=== PATIENT | male | born 1940 | race African-American/Black ===

== ENCOUNTER 2016-11-05 05:20 | Day surgery (SDC) | payer MEDICARE, OTHER ==
[~2016-11-05] VITALS: Ht 181.6 cm; Wt 93.0 kg
[~2016-11-05 05:20] MED LIST: ASPI-1159 PO; ATOR20TA65 PO; CILO100T PO; ERGO400T7 PO; LOSA25TA12 PO
[2016-11-05 06:00] LABS: CLARITY URINE CLEAR (CLEAR); COLOR URINE YELLOW (YELLOW); GLUCOSE URINE NEGATIVE (NEGATIVE); KETONES URINE NEGATIVE (NEGATIVE); LEUKOCYTE ESTERASE URINE TRACE (NEGATIVE); NITRITE URINE NEGATIVE (NEGATIVE); OCCULT BLOOD URINE NEGATIVE (NEGATIVE); PH URINE 6.5 (4.5-8.0); PROTEIN URINE NEGATIVE (NEGATIVE); SPECIFIC GRAVITY URINE 1.021 (1.005-1.030)
[2016-11-05] MEDS ORDERED: LACTATED RINGERS 1,000 ML IV SCH (06:15)
[2016-11-05] MEDS ORDERED: SKIN ADHESIVE 0.7 GM EA TOP ONE (06:38)
[2016-11-05] MEDS ORDERED: BUPIVACAINE HCL/PF 0.5% (5MG/ML) 10ML ONE ×2 (06:39→07:22)
[2016-11-05] MEDS ORDERED: FENTANYL CITRATE/PF 50MCG/ML 2ML VIAL ONE ×2 (06:49→07:21)
[2016-11-05] MEDS ORDERED: MIDAZOLAM HCL 2 MG/2 ML VIAL ONE (06:49)
[2016-11-05] MEDS ORDERED: SODIUM CHLORIDE 0.9% 10ML VIAL ONE (07:34)
[2016-11-05] MEDS ORDERED: ROCURONIUM BROMIDE 10MG/ML VIAL 5ML IV ONE (07:34)
[2016-11-05] MEDS ORDERED: PROPOFOL 200MG/20ML VIAL IV ONE (07:34)
[2016-11-05] MEDS ORDERED: ESMOLOL HCL 10MG/ML 10ML VIAL IV ONE (07:34)
[2016-11-05] MEDS ORDERED: CEFAZOLIN SODIUM 1000MG/VIAL ONE (07:34)
[2016-11-05] MEDS ORDERED: BUPIVACAINE HCL 0.5% 175 ML in ON-Q PM013 DRUG DELIV DEVICE 1 EA IR NR (07:45)
[2016-11-05] MEDS ORDERED: NEOSTIGMINE METHYLSULFATE 1MG/ML 10 ML VIAL ONE (08:14)
[2016-11-05] MEDS ORDERED: GLYCOPYRROLATE 0.2 MG/ML 2ML VIAL ONE (08:14)
[2016-11-05] MEDS ORDERED: ONDANSETRON HCL 4MG/2ML VIAL IV PRN (08:30)
[2016-11-05] MEDS ORDERED: HYDROMORPHONE HCL/PF 2MG/ML CPJ IV PRN (08:30)
[2016-11-05] MEDS ORDERED: FENTANYL CITRATE/PF 50MCG/ML 2ML VIAL IV PRN (08:30)
[2016-11-05] MEDS ORDERED: HYDRALAZINE 20MG/ML VIAL IV PRN (08:30)
== END 2016-11-05 10:15 | disposition home or self-care (01) ==
LOC: OR 05:20
PROVIDERS: ATTEND Surgery
DX: K40.90 Unilateral inguinal hernia, without obstruction or gangrene, not specified as recurrent (principal)
CPT/HCPCS: 49505; 71010; 81001; A4216; C1781; G0168; J0690; J2250; J2710; J3010; J3490; J7120; J2704

== ENCOUNTER 2017-02-17 06:32 | Inpatient (IN) | payer MEDICARE, OTHER ==
[2017-02-17] VITALS (35 sets, daily range): BP systolic 120–173; BP diastolic 74–106
[~2017-02-17] VITALS: Ht 180.3 cm; Wt 89.8 kg
[2017-02-17] MEDS ORDERED: ASPIRIN/SOD BICARB/CITRIC ACID 324MG TAB EFF ONE (07:51)
[2017-02-17] MEDS ORDERED: LIDOCAINE HCL 1% 20ML VIAL (Pyxis) INJ ONE ×2 (08:00→09:39)
[2017-02-17] MEDS ORDERED: IODIXANOL 320MG/ML 200ML BOTTLE ONE (08:04)
[2017-02-17] MEDS ORDERED: MIDAZOLAM HCL 2 MG/2 ML VIAL ONE ×2 (08:05→08:34)
[2017-02-17] MEDS ORDERED: FENTANYL CITRATE/PF 50MCG/ML 2ML VIAL ONE (08:06)
[2017-02-17] MEDS ORDERED: HYDRALAZINE 20MG/ML VIAL ONE (08:25)
[2017-02-17] MEDS ORDERED: IOVERSOL 240MG/ML 100ML BOTTLE IV ONE (08:52)
[2017-02-17] MEDS ORDERED: CLOPIDOGREL 75MG TABLET ONE (09:54)
[2017-02-17] MEDS ORDERED: CEFAZOLIN 1000MG PREMIX 50 ML IV ONE (09:55)
[2017-02-17] MEDS ORDERED: MORPHINE SULFATE 10 MG/ML CPJ IV PRN (10:00)
[2017-02-17] MEDS ORDERED: ATROPINE SULFATE 1MG/10ML SYR IV PRN (10:00)
[2017-02-17] MEDS ORDERED: ONDANSETRON HCL 4MG/2ML VIAL IV PRN (10:00)
[2017-02-17] MEDS ORDERED: ACETAMINOPHEN 325MG TABLET PO PRN (10:00)
[2017-02-17] MEDS ORDERED: CLOPIDOGREL 75MG TABLET PO ONE (10:00)
[2017-02-17] MEDS ORDERED: CLOPIDOGREL 75MG TABLET PO SCH (11:30)
[2017-02-17] MEDS: SODIUM CHLORIDE 0.45% 1,000 ML IV SCH ×2 (11:53→21:32)
[2017-02-17] MEDS ORDERED: HEPARIN SODIUM 1,000 UNIT/1ML VIAL IV ONE (11:59)
[2017-02-17] MEDS: LOSARTAN POTASSIUM 50 MG TABLET PO SCH ×2 (12:01→21:32)
[2017-02-17] MEDS ORDERED: LORAZEPAM 2MG/ML CPJ IV NR (17:30)
[2017-02-17] MEDS ORDERED: ATORVASTATIN CALCIUM 20MG TABLET PO SCH (21:00)
[2017-02-18] VITALS: BP 149/79
[2017-02-18 02:00] VITALS: BP 159/88
[2017-02-18 04:00] VITALS: BP 151/84
[2017-02-18 05:50] LABS: BASOPHILS % 0.4 % (0.0-2.0); HEMOGLOBIN. 15.4 g/dL (14.0-18.0); LYMPHOCYTES % 25.2 % (20.0-50.0); MEAN CORPUSCULAR HEMOGLOBIN 28.4 pg (28.0-32.0); MEAN CORPUSCULAR VOLUME 84.9 fL (80.0-94.0); MEAN PLATELET VOLUME 8.2 fl (7.4-10.4); MONOCYTES % 8.8 % (2.0-8.0); NEUTROPHILS % 64.6 % (40.0-76.0); PLATELET 166 x1000/uL (130-400); RED BLOOD CELL COUNT 5.42 mill/uL (4.7-6.1); RED CELL DISTRIBUTION WIDTH 15.1 % (11.6-14.6)
[2017-02-18 06:00] VITALS: BP 148/98
[2017-02-18 06:34] LABS: CARBON DIOXIDE 24 mEq/L (21-32); CHLORIDE 106 mEq/L (98-107)
[2017-02-18 08:00] VITALS: BP 154/92
[2017-02-18] MEDS: LOSARTAN POTASSIUM 50 MG TABLET PO SCH (08:53)
[2017-02-18] MEDS ORDERED: ASPIRIN 325MG TABLET PO SCH (09:00)
[2017-02-18] MEDS ORDERED: CLOPIDOGREL 75MG TABLET PO SCH (09:00)
[2017-02-18 09:30] VITALS: BP 154/92
== END 2017-02-18 12:15 | disposition home or self-care (01) | DRG 254 ==
LOC: CCL 06:32 → 3WST 06:33
PROVIDERS: ADMIT Specialist; ATTEND Specialist
PROC: 047C3DZ Dilation of Right Common Iliac Artery with Intraluminal Device, Percutaneous Approach (ICD-10-PCS; principal; 2017-02-17)
PROC: 047D3DZ Dilation of Left Common Iliac Artery with Intraluminal Device, Percutaneous Approach (ICD-10-PCS; 2017-02-17)
PROC: B41D1ZZ Fluoroscopy of Aorta and Bilateral Lower Extremity Arteries using Low Osmolar Contrast (ICD-10-PCS; 2017-02-17)
DX: I73.9 Peripheral vascular disease, unspecified (principal); I11.9 Hypertensive heart disease without heart failure; E78.00 Pure hypercholesterolemia, unspecified
CPT/HCPCS: 36415; 37221; 37223; 75630; 80048; 85025; 85347; 93005; C1725; C1726; C1760; C1769; C1874; C1893; J0360; J0690; J1644; J2060; J2250; J3010; J3490; J7120; Q9967

== ENCOUNTER 2017-09-02 16:14 | Emergency (ER) | payer MEDICARE, OTHER ==
[~2017-09-02] VITALS: Ht 180.3 cm; Wt 97.0 kg
[2017-09-02 17:48] LABS: EOSINOPHILS % 2.3 % (0.0-5.0); HEMATOCRIT. 43.6 % (42.0-52.0); HEMOGLOBIN. 14.5 g/dL (14.0-18.0); LYMPHOCYTES % 34.4 % (20.0-50.0); MEAN CORPUSCULAR HEMOGLOBIN 28.2 pg (28.0-32.0); MEAN CORPUSCULAR VOLUME 84.6 fL (80.0-94.0); MEAN PLATELET VOLUME 7.5 fl (7.4-10.4); MONOCYTES % 9.9 % (2.0-8.0); NEUTROPHILS % 52.4 % (40.0-76.0); PLATELET 201 x1000/uL (130-400); RED BLOOD CELL COUNT 5.15 mill/uL (4.7-6.1); RED CELL DISTRIBUTION WIDTH 14.8 % (11.6-14.6)
[2017-09-02 17:52] LABS: CHLORIDE 106 mEq/L (98-107)
[2017-09-02 17:56] LABS: INR 1.1; PARTIAL THROMBOPLASTIN TIME 26.6 sec (23.4-31.0); PROTHROMBIN TIME 11.1 sec (9.4-11.6)
[2017-09-02 20:05] LABS: CLARITY URINE CLEAR (CLEAR); COLOR URINE YELLOW (YELLOW); KETONES URINE NEGATIVE (NEGATIVE); LEUKOCYTE ESTERASE URINE NEGATIVE (NEGATIVE); NITRITE URINE NEGATIVE (NEGATIVE); OCCULT BLOOD URINE NEGATIVE (NEGATIVE); PROTEIN URINE NEGATIVE (NEGATIVE); SPECIFIC GRAVITY URINE 1.018 (1.005-1.030)
[2017-09-02 20:21] LABS: OPIATES URINE SCREEN NEGATIVE (NEGATIVE); PHENCYCLIDINE URINE SCREEN NEGATIVE (NEGATIVE)
[2017-09-02 20:22] LABS: *AMPHETAMINES SCREEN URINE NEGATIVE (NEGATIVE); *BARBITURATES SCREEN URINE NEGATIVE (NEGATIVE); *BENZODIAZEPINES SCREEN URINE NEGATIVE (NEGATIVE); *COCAINE SCREEN URINE NEGATIVE (NEGATIVE); CANNABINOID URINE SCREEN PRESUMTIVE POSITIVE (NEGATIVE)
[2017-09-02 20:24] LABS: METHADONE URINE SCREEN NEGATIVE (NEGATIVE)
[2017-09-02 20:45] VITALS: BP 161/84
[2017-09-02] MEDS ORDERED: RIVAROXABAN 15 MG TABLET PO STA (21:15)
[2017-09-03] MEDS ORDERED: RIVAROXABAN 15 MG TABLET PO SCH (17:00)
[2017-09-05] MEDS ORDERED: APIX5TAB PO (12:45)
== END 2017-09-02 21:42 | disposition home or self-care (01) ==
LOC: ER 16:43
DX: I82.491 Acute embolism and thrombosis of other specified deep vein of right lower extremity (principal); I10 Essential (primary) hypertension; E78.00 Pure hypercholesterolemia, unspecified; Z98.890 Other specified postprocedural states
CPT/HCPCS: 36415; 71045; 80053; 80305; 81003; 83880; 84484; 85025; 85610; 85730; 93005; 93971; 99285; G0482

== ENCOUNTER → 2017-09-02 | Outpatient (CLI) | payer MEDICARE, OTHER ==
[~2017-09-02] MED LIST changes: -ASPI-1159 PO
== END | disposition home or self-care (01) ==
LOC: US 11:43
PROVIDERS: ATTEND Specialist
DX: I82.491 Acute embolism and thrombosis of other specified deep vein of right lower extremity (principal)
CPT/HCPCS: 93971

== ENCOUNTER 2017-11-10 20:15 | Emergency (ER) | payer MEDICARE, OTHER ==
[~2017-11-10] VITALS: Ht 180.3 cm; Wt 98.0 kg
[2017-11-10 21:57] LABS: BASOPHILS % 0.9 % (0.0-2.0); EOSINOPHILS % 2.3 % (0.0-5.0); HEMATOCRIT. 37.3 % (42.0-52.0); HEMOGLOBIN. 11.9 g/dL (14.0-18.0); LYMPHOCYTES % 38.4 % (20.0-50.0); MEAN CORPUSCULAR HEMOGLOBIN 27.1 pg (28.0-32.0); MEAN CORPUSCULAR VOLUME 84.9 fL (80.0-94.0); MEAN PLATELET VOLUME 7.3 fl (7.4-10.4); MONOCYTES % 13.5 % (2.0-8.0); NEUTROPHILS % 44.9 % (40.0-76.0); PLATELET 248 x1000/uL (130-400); RED CELL DISTRIBUTION WIDTH 19.3 % (11.6-14.6)
[2017-11-10 22:00] LABS: CHLORIDE 107 mEq/L (98-107)
[2017-11-10 22:01] LABS: INR 1.1; PROTHROMBIN TIME 11.4 sec (9.4-11.6)
[2017-11-11] MEDS ORDERED: VANCOMYCIN 1 G PREMIX 200 ML IV SCH (03:00)
[2017-11-11] MEDS ORDERED: PIPERACILLIN/TAZOBACTAM 3.375GM/50ML PREMIX IV ONE (03:00)
[2017-11-11] MEDS ORDERED: PIPERACILLIN/TAZ 3.375G PREMIX 50 ML IV NR (03:00)
[2017-11-11 03:14] VITALS: BP 128/74
== END 2017-11-11 03:15 | disposition home or self-care (01) ==
LOC: ER 20:15
DX: I82.509 Chronic embolism and thrombosis of unspecified deep veins of unspecified lower extremity (principal); L97.919 Non-pressure chronic ulcer of unspecified part of right lower leg with unspecified severity; I73.9 Peripheral vascular disease, unspecified; M79.661 Pain in right lower leg; K21.9 Gastro-esophageal reflux disease without esophagitis; F17.200 Nicotine dependence, unspecified, uncomplicated
CPT/HCPCS: 36415; 71045; 80053; 83880; 84484; 85025; 85610; 93005; 93970; 99285

== ENCOUNTER → 2018-08-03 | Day surgery (SDC) | payer MEDICARE, OTHER ==
[~2018-08-03] VITALS: Ht 180.3 cm; Wt 93.0 kg
[~2018-08-03] MED LIST changes: +APIX5TAB PO; +ASPIRIN/SOD BICARB/CITRIC ACID 324MG TAB EFF ONE; +FENTANYL CITRATE/PF 50MCG/ML 2ML VIAL ONE; +IODIXANOL 320MG/ML 100 ML BOTTLE IV ONE; +LIDOCAINE HCL 1% 20ML VIAL (Pyxis) INJ ONE; -LOSA25TA12 PO; +LOSA25TA26 PO; +MIDAZOLAM HCL 2 MG/2 ML VIAL ONE; +NEBI2.5T2 PO
== END | disposition home or self-care (01) ==
LOC: CCL 06:30
PROVIDERS: ATTEND Specialist
DX: I25.118 Atherosclerotic heart disease of native coronary artery with other forms of angina pectoris (principal); I73.9 Peripheral vascular disease, unspecified; I10 Essential (primary) hypertension; E78.00 Pure hypercholesterolemia, unspecified; E78.5 Hyperlipidemia, unspecified; Z53.8 Procedure and treatment not carried out for other reasons; Z79.82 Long term (current) use of aspirin; Z79.01 Long term (current) use of anticoagulants; Z79.899 Other long term (current) drug therapy; Z95.5 Presence of coronary angioplasty implant and graft
CPT/HCPCS: J1644; J2250; J3010; Q9967; J3490

== ENCOUNTER 2018-08-05 06:07 | Inpatient (IN) | payer MEDICARE, OTHER ==
[~2018-08-05] VITALS: Ht 180.3 cm; Wt 93.0 kg
[~2018-08-05 06:07] MED LIST changes: -ASPIRIN/SOD BICARB/CITRIC ACID 324MG TAB EFF ONE; -FENTANYL CITRATE/PF 50MCG/ML 2ML VIAL ONE; -IODIXANOL 320MG/ML 100 ML BOTTLE IV ONE; -LIDOCAINE HCL 1% 20ML VIAL (Pyxis) INJ ONE; +LOSA25TA12 PO; -LOSA25TA26 PO; -MIDAZOLAM HCL 2 MG/2 ML VIAL ONE
[2018-08-05] MEDS ORDERED: NICARDIPINE 100MCG/ML 10ML VIAL (CATH LAB) IV ONE (10:01)
[2018-08-05] MEDS ORDERED: NITROGLYCERIN 50MCG/ML 10ML VIAL (CATH LAB) IV ONE (10:01)
[2018-08-05] MEDS ORDERED: HEPARIN SODIUM 1,000 UNIT/1ML VIAL IV ONE (10:03)
[2018-08-05] MEDS ORDERED: FENTANYL CITRATE/PF 50MCG/ML 2ML VIAL ONE (10:38)
[2018-08-05] MEDS ORDERED: MIDAZOLAM HCL 2 MG/2 ML VIAL ONE ×2 (10:38→11:25)
[2018-08-05] MEDS ORDERED: IODIXANOL 320MG/ML 100 ML BOTTLE IV ONE ×2 (10:39→11:55)
[2018-08-05] MEDS ORDERED: LIDOCAINE HCL 1% 20ML VIAL (Pyxis) INJ ONE (10:39)
[2018-08-05] MEDS ORDERED: ASPIRIN/SOD BICARB/CITRIC ACID 324MG TAB EFF ONE (10:51)
[2018-08-05] MEDS ORDERED: IOHEXOL-300 100 ML BOTTLE ONE (11:20)
[2018-08-05] MEDS ORDERED: CLOPIDOGREL 75MG TABLET ONE (11:53)
[2018-08-05] MEDS ORDERED: ATROPINE SULFATE 0.1MG/ML 10ML DISP.SYRIN ONE (12:04)
[2018-08-05] MEDS ORDERED: SODIUM CHLORIDE 0.45% 1,000 ML IV ONE (12:30)
[2018-08-05] MEDS ORDERED: ATROPINE SULFATE 1MG/10ML SYR IV PRN (12:30)
[2018-08-05] MEDS ORDERED: ACETAMINOPHEN 325MG TABLET PO PRN (12:30)
[2018-08-05] MEDS ORDERED: AMLODIPINE 2.5MG TABLET PO SCH (12:30)
[2018-08-05] MEDS ORDERED: LOSARTAN POTASSIUM 25 MG TABLET PO SCH (12:30)
[2018-08-05] MEDS ORDERED: CLOPIDOGREL 75MG TABLET PO NR (12:30)
[2018-08-05] MEDS ORDERED: MORPHINE SULFATE 4 MG/ML CPJ (NOT FOR IM USE) IV PRN (12:30)
[2018-08-05 18:40] VITALS: BP 128/84
[2018-08-05 18:46] VITALS: BP 128/84
[2018-08-05] MEDS ORDERED: INFLUENZA VIRUS VACCINE(AFLURIA) 0.5ML SYR IM ONE (19:30)
[2018-08-05] MEDS ORDERED: PNEUMOCOCCAL 23-VAL P-SAC VAC 0.5 ML IM ONE (19:30)
[2018-08-05 20:00] VITALS: BP 155/78
[2018-08-05] MEDS ORDERED: ATORVASTATIN CALCIUM 40MG TABLET PO SCH (21:00)
[2018-08-05] MEDS: AMLODIPINE 2.5MG TABLET PO SCH (21:05)
[2018-08-05] MEDS: LOSARTAN POTASSIUM 25 MG TABLET PO SCH (21:06)
[2018-08-05 22:00] VITALS: BP 131/68
[2018-08-06] VITALS (8 sets, daily range): BP systolic 121–143; BP diastolic 61–82
[2018-08-06 05:23] LABS: BASOPHILS % 0.7 % (0.0-2.0); EOSINOPHILS % 1.4 % (0.0-5.0); HEMATOCRIT. 38.9 % (42.0-52.0); HEMOGLOBIN. 12.8 g/dL (14.0-18.0); MEAN CORPUSCULAR HEMOGLOBIN 27.1 pg (28.0-32.0); MEAN CORPUSCULAR VOLUME 82.5 fL (80.0-94.0); MEAN PLATELET VOLUME 7.8 fl (7.4-10.4); MONOCYTES % 12.7 % (2.0-8.0); NEUTROPHILS % 57.2 % (40.0-76.0); PLATELET 205 x1000/uL (130-400); RED BLOOD CELL COUNT 4.72 mill/uL (4.7-6.1); RED CELL DISTRIBUTION WIDTH 15.5 % (11.6-14.6)
[2018-08-06 06:32] LABS: CHLORIDE 106 mEq/L (98-107)
[2018-08-06] MEDS: AMLODIPINE 2.5MG TABLET PO SCH (08:48)
[2018-08-06] MEDS: LOSARTAN POTASSIUM 25 MG TABLET PO SCH (08:48)
[2018-08-06] MEDS ORDERED: ASPIRIN 325MG TABLET PO SCH (09:00)
[2018-08-06] MEDS ORDERED: NEBIVOLOL HCL 5 MG TABLET PO SCH (09:00)
[2018-08-06] MEDS ORDERED: CLOPIDOGREL 75MG TABLET PO SCH (09:00)
== END 2018-08-06 12:45 | disposition home or self-care (01) | DRG 247 ==
LOC: CCL 06:07 → 3WST 19:03
PROVIDERS: ADMIT Specialist; ATTEND Specialist
PROC: 4A023N7 Measurement of Cardiac Sampling and Pressure, Left Heart, Percutaneous Approach (ICD-10-PCS; principal; 2018-08-05)
PROC: 027136Z Dilation of Coronary Artery, Two Arteries with Three Drug-eluting Intraluminal Devices, Percutaneous Approach (ICD-10-PCS; 2018-08-05)
PROC: B2111ZZ Fluoroscopy of Multiple Coronary Arteries using Low Osmolar Contrast (ICD-10-PCS; 2018-08-05)
DX: I25.10 Atherosclerotic heart disease of native coronary artery without angina pectoris (principal); I10 Essential (primary) hypertension; E78.5 Hyperlipidemia, unspecified; I73.9 Peripheral vascular disease, unspecified; Z86.718 Personal history of other venous thrombosis and embolism
CPT/HCPCS: 36415; 80048; 85347; 90686; 90732; 92928; 92929; 93005; 93458; C1769; C1874; C1887; C1893; J0461; J1644; J2250; J3010; J3490; Q9967

== ENCOUNTER 2019-04-11 11:05 | Inpatient (IN) | payer MEDICAID, MEDICARE, OTHER ==
[~2019-04-11] VITALS: Ht 180.3 cm; Wt 89.8 kg
[~2019-04-11 11:05] MED LIST changes: -LOSA25TA12 PO; +LOSA25TA26 PO
[2019-04-11] MEDS ORDERED: SODIUM CHLORIDE 0.9% 250 ML IV ONE (11:27)
[2019-04-11] MEDS ORDERED: ONDANSETRON HCL 4MG/2ML INJ IV STA (11:27)
[2019-04-11] MEDS ORDERED: MORPHINE SULFATE 4 MG/ML CPJ (NOT FOR IM USE) IV STA (11:27)
[2019-04-11 12:01] LABS: HEMATOCRIT. 46.2 % (42.0-52.0); HEMOGLOBIN. 14.9 g/dL (14.0-18.0); MEAN CORPUSCULAR HEMOGLOBIN 23.3 pg (28.0-32.0); MEAN CORPUSCULAR VOLUME 72.5 fL (80.0-94.0); MEAN PLATELET VOLUME 8.6 fl (7.4-10.4); PLATELET 243 x1000/uL (130-400); RED BLOOD CELL COUNT 6.38 mill/uL (4.7-6.1); RED CELL DISTRIBUTION WIDTH 20.6 % (11.6-14.6)
[2019-04-11 12:49] LABS: PLATELET ESTIMATE NORMAL
[2019-04-11 12:50] LABS: CLARITY URINE CLEAR (CLEAR); COLOR URINE DARK YELLOW (YELLOW); KETONES URINE TRACE (NEGATIVE); LEUKOCYTE ESTERASE URINE NEGATIVE (NEGATIVE); NITRITE URINE NEGATIVE (NEGATIVE); OCCULT BLOOD URINE 1+ (NEGATIVE); PH URINE 5.5 (4.5-8.0); PROTEIN URINE 2+ (NEGATIVE)
[2019-04-11] MEDS ORDERED: CEFTRIAXONE 1 G PREMIX 50 ML IV ONE (13:15)
[2019-04-11 14:53] LABS: CHLORIDE 106 mEq/L (98-107)
[2019-04-11] MEDS ORDERED: VANCOMYCIN 1 G PREMIX 200 ML IV ONE (15:00)
[2019-04-11] MEDS ORDERED: MAGNESIUM/ALUMINUM HYDROXIDE/SIMETHICONE 30ML UDC PO PRN (15:30)
[2019-04-11] MEDS ORDERED: DIPHENHYDRAMINE 50MG/ML VIAL IV PRN (15:30)
[2019-04-11] MEDS ORDERED: ONDANSETRON HCL 4MG/2ML INJ IV PRN (15:30)
[2019-04-11] MEDS ORDERED: GUAIFENESIN 200MG/10ML SUGAR FREE UDC PO PRN (15:30)
[2019-04-11] MEDS ORDERED: SODIUM CHLORIDE 0.9% 1,000 ML IV ONE (16:44)
[2019-04-11] MEDS: HYDROMORPHONE HCL/PF 2MG/ML CPJ IV PRN ×2 (16:54→17:59)
[2019-04-11 17:00] VITALS: BP 163/79
[2019-04-11 20:00] VITALS: BP 159/89
[2019-04-11] MEDS: SODIUM CHLORIDE 0.9% INJ 3ML FLUSH IVF SCH (20:11)
[2019-04-11] MEDS: FAMOTIDINE 20MG TABLET PO SCH (20:11)
[2019-04-11] MEDS ORDERED: INFLUENZA VIRUS VACCINE(AFLURIA) 0.5ML SYR IM ONE (20:30)
[2019-04-12] VITALS: BP 119/67
[2019-04-12] MEDS: HYDROMORPHONE HCL/PF 2MG/ML CPJ IV PRN ×3 (00:33→20:10)
[2019-04-12] MEDS: SODIUM CHLORIDE 0.9% INJ 3ML FLUSH IVF SCH ×3 (07:00→20:26)
[2019-04-12 08:00] VITALS: BP 145/88
[2019-04-12 10:19] LABS: INR 1.2
[2019-04-12] MEDS: FAMOTIDINE 20MG TABLET PO SCH ×2 (10:20→20:26)
[2019-04-12] MEDS: SODIUM CHLORIDE 0.9% 1,000 ML IV SCH ×2 (10:20→18:15)
[2019-04-12 11:21] LABS: HEMATOCRIT. 38.6 % (42.0-52.0); HEMOGLOBIN. 11.8 g/dL (14.0-18.0); MEAN CORPUSCULAR HEMOGLOBIN 22.5 pg (28.0-32.0); MEAN CORPUSCULAR VOLUME 73.4 fL (80.0-94.0); MEAN PLATELET VOLUME 8.8 fl (7.4-10.4); PLATELET 161 x1000/uL (130-400); RED BLOOD CELL COUNT 5.26 mill/uL (4.7-6.1); RED CELL DISTRIBUTION WIDTH 19.3 % (11.6-14.6)
[2019-04-12 12:00] VITALS: BP 162/85
[2019-04-12 12:32] LABS: INR 1.1; PROTHROMBIN TIME 11.8 sec (9.6-11.0)
[2019-04-12 16:00] VITALS: BP 151/78
[2019-04-12 18:37] LABS: PLATELET ESTIMATE NORMAL
[2019-04-12] MEDS ORDERED: GADOBENATE DIMEGLUMINE 529 MG/ML 10ML IV ONE (19:11)
[2019-04-12 20:00] VITALS: BP 167/93
[2019-04-13 00:13] VITALS: BP 154/86
[2019-04-13] MEDS ORDERED: VANCOMYCIN 750 MG PREMIX 150 ML IV SCH (01:00)
[2019-04-13 04:00] VITALS: BP 157/87
[2019-04-13] MEDS: SODIUM CHLORIDE 0.9% 1,000 ML IV SCH ×2 (04:15→14:20)
[2019-04-13] MEDS: PIPERACILLIN/TAZOBACTAM 3.375 G in DEXT 5% WATER 100 ML IV SCH ×4 (06:30→13:12)
[2019-04-13] MEDS: SODIUM CHLORIDE 0.9% INJ 3ML FLUSH IVF SCH ×3 (06:30→21:44)
[2019-04-13 07:25] LABS: BASOPHILS % 0.4 % (0.0-2.0); HEMATOCRIT. 36.2 % (42.0-52.0); HEMOGLOBIN. 11.4 g/dL (14.0-18.0); LYMPHOCYTES % 8.3 % (20.0-50.0); MEAN CORPUSCULAR HEMOGLOBIN 22.7 pg (28.0-32.0); MEAN CORPUSCULAR VOLUME 72.4 fL (80.0-94.0); MEAN PLATELET VOLUME 8.6 fl (7.4-10.4); MONOCYTES % 12.5 % (2.0-8.0); NEUTROPHILS % 78.8 % (40.0-76.0); PLATELET 176 x1000/uL (130-400); RED BLOOD CELL COUNT 4.99 mill/uL (4.7-6.1); RED CELL DISTRIBUTION WIDTH 19.2 % (11.6-14.6)
[2019-04-13 07:44] LABS: CHLORIDE 106 mEq/L (98-107)
[2019-04-13 07:51] LABS: PHOSPHORUS 3.3 mg/dL (2.5-4.9)
[2019-04-13 08:00] VITALS: BP 148/84
[2019-04-13] MEDS: OXYCODONE HCL/ACETAMINOPHEN 5/325MG TABLET PO PRN ×2 (08:59→18:18)
[2019-04-13] MEDS ORDERED: FAMOTIDINE 40MG TABLET PO SCH (11:22)
[2019-04-13 12:00] VITALS: BP 149/91
[2019-04-13 16:00] VITALS: BP 134/75
[2019-04-13] MEDS ORDERED: IPRATROPIUM/ALBUTEROL 0.5-3(2.5)MG/3ML NEB HHN PRN (16:00)
[2019-04-13] MEDS ORDERED: VANCOMYCIN 1250MG in DEXTROSE 5% WATER 250ML IV SCH (18:00)
[2019-04-13] MEDS: CEFTRIAXONE 2 G in DEXTROSE 5% WATER 50 ML IV SCH (18:17)
[2019-04-13] MEDS: VANCOMYCIN 1250MG in DEXTROSE 5% WATER 250ML IV SCH (18:55)
[2019-04-13 20:00] VITALS: BP_SYST 144
[2019-04-13] MEDS ORDERED: FAMOTIDINE 20MG TABLET PO SCH (21:00)
[2019-04-13] MEDS: FAMOTIDINE 40MG TABLET PO SCH (22:35)
[2019-04-14] VITALS: BP 155/88
[2019-04-14] MEDS: SODIUM CHLORIDE 0.9% 1,000 ML IV SCH ×3 (00:15→20:15)
[2019-04-14] MEDS: OXYCODONE HCL/ACETAMINOPHEN 5/325MG TABLET PO PRN ×2 (00:39→13:35)
[2019-04-14 04:00] VITALS: BP 156/90
[2019-04-14] MEDS: SODIUM CHLORIDE 0.9% INJ 3ML FLUSH IVF SCH ×2 (06:00→22:00)
[2019-04-14] MEDS: ACETAMINOPHEN 325MG TABLET PO PRN (06:35)
[2019-04-14 07:20] LABS: CHLORIDE 105 mEq/L (98-107)
[2019-04-14 08:00] VITALS: BP 136/81
[2019-04-14] MEDS: FAMOTIDINE 40MG TABLET PO SCH ×2 (09:55→21:46)
[2019-04-14] MEDS: CEFTRIAXONE 2 G in DEXTROSE 5% WATER 50 ML IV SCH (10:14)
[2019-04-14] MEDS: VANCOMYCIN 1250MG in DEXTROSE 5% WATER 250ML IV SCH ×2 (11:02→18:48)
[2019-04-14] MEDS ORDERED: LIDOCAINE HCL 1% 20ML VIAL (Pyxis) INJ ONE (11:31)
[2019-04-14 12:00] VITALS: BP 160/90
[2019-04-14] MEDS ORDERED: THROMBIN (BOVINE) 5000 UNITS/VIAL TOP ONE ×2 (12:48→13:36)
[2019-04-14] MEDS ORDERED: LIDOCAINE HCL/EPINEPHRINE 1%-EPI 1:100,000 20 ML VIAL ONE ×2 (12:49→13:37)
[2019-04-14] MEDS ORDERED: BACITRACIN 50,000 UNITS/VIAL ONE ×2 (12:49→13:38)
[2019-04-14] MEDS ORDERED: NORMAL SALINE 0.9% 10 ML SYR ONE (12:49)
[2019-04-14] MEDS ORDERED: BACITRACIN 15GM TUBE TOP ONE (13:36)
[2019-04-14] MEDS ORDERED: ROCURONIUM BROMIDE 10MG/ML VIAL 5ML IV ONE (14:55)
[2019-04-14] MEDS ORDERED: GLYCOPYRROLATE 0.2 MG/ML 2ML VIAL ONE (14:55)
[2019-04-14] MEDS ORDERED: FENTANYL CITRATE/PF 50MCG/ML 2ML VIAL ONE (14:55)
[2019-04-14] MEDS ORDERED: MIDAZOLAM HCL 2 MG/2 ML VIAL ONE (14:55)
[2019-04-14] MEDS ORDERED: NEOSTIGMINE METHYLSULFATE 1MG/ML 10 ML VIAL ONE (14:55)
[2019-04-14] MEDS ORDERED: PROPOFOL 200MG/20ML VIAL IV ONE (14:55)
[2019-04-14] MEDS ORDERED: ONDANSETRON HCL 4MG/2ML INJ ONE (15:09)
[2019-04-14] MEDS ORDERED: DEXAMETHASONE 4MG/ML 1ML VIAL ONE (15:09)
[2019-04-14 16:00] VITALS: BP 180/92
[2019-04-14] MEDS ORDERED: ONDANSETRON INJ IV PRN (17:15)
[2019-04-14] MEDS ORDERED: NALOXONE INJ IV PRN (17:15)
[2019-04-14] MEDS: HYDROMORPHONE PCA 10MG/50ML IV PRN (18:36)
[2019-04-14] MEDS: CLONIDINE 0.1MG TABLET PO PRN (21:46)
[2019-04-15] VITALS (52 sets, daily range): BP systolic 72–175; BP diastolic 49–173
[2019-04-15] MEDS: DEXT 5%/0.45% NACL 1000ML 1,000 ML IV SCH ×2 (01:23→10:10)
[2019-04-15] MEDS: VANCOMYCIN 1250MG in DEXTROSE 5% WATER 250ML IV SCH ×3 (01:24→17:59)
[2019-04-15] MEDS ORDERED: THROMBIN (BOVINE) 5000 UNITS/VIAL TOP ONE ×2 (05:28→05:30)
[2019-04-15] MEDS ORDERED: BACITRACIN 15GM TUBE TOP ONE (05:28)
[2019-04-15] MEDS ORDERED: LIDOCAINE HCL/EPINEPHRINE 1%-EPI 1:100,000 20 ML VIAL ONE (05:29)
[2019-04-15] MEDS ORDERED: BACITRACIN 50,000 UNITS/VIAL ONE (05:29)
[2019-04-15] MEDS: SODIUM CHLORIDE 0.9% INJ 3ML FLUSH IVF SCH ×3 (05:30→22:14)
[2019-04-15] MEDS: SODIUM CHLORIDE 0.9% 1,000 ML IV SCH (05:36)
[2019-04-15] MEDS ORDERED: FENTANYL CITRATE/PF 50MCG/ML 5ML VIAL ONE (07:23)
[2019-04-15] MEDS ORDERED: ROCURONIUM BROMIDE 10MG/ML VIAL 5ML IV ONE (07:45)
[2019-04-15] MEDS ORDERED: NICARDIPINE 100 MG in SODIUM CHLORIDE 0.9% 60 ML IV PRN (09:00)
[2019-04-15] MEDS: FAMOTIDINE 40MG TABLET PO SCH ×2 (09:00→22:14)
[2019-04-15] MEDS ORDERED: MORPHINE SULFATE 4 MG/ML CPJ (NOT FOR IM USE) IV PRN (09:00)
[2019-04-15] MEDS: CEFTRIAXONE 2 G in DEXTROSE 5% WATER 50 ML IV SCH (10:10)
[2019-04-15] MEDS ORDERED: CLONIDINE HCL 0.1MG/24HR PATCH TD NR (13:30)
[2019-04-16] VITALS (95 sets, daily range): BP systolic 103–161; BP diastolic 52–96
[2019-04-16] MEDS: DEXT 5%/0.45% NACL 1000ML 1,000 ML IV SCH ×4 (00:13→17:10)
[2019-04-16] MEDS: VANCOMYCIN 1250MG in DEXTROSE 5% WATER 250ML IV SCH ×3 (02:33→18:12)
[2019-04-16 05:22] LABS: HEMATOCRIT. 33.9 % (42.0-52.0); HEMOGLOBIN. 10.8 g/dL (14.0-18.0); MEAN CORPUSCULAR HEMOGLOBIN 22.8 pg (28.0-32.0); MEAN CORPUSCULAR VOLUME 71.4 fL (80.0-94.0); MEAN PLATELET VOLUME 7.9 fl (7.4-10.4); PLATELET 212 x1000/uL (130-400); RED BLOOD CELL COUNT 4.75 mill/uL (4.7-6.1); RED CELL DISTRIBUTION WIDTH 19.9 % (11.6-14.6)
[2019-04-16 05:32] LABS: CHLORIDE 101 mEq/L (98-107)
[2019-04-16] MEDS: SODIUM CHLORIDE 0.9% INJ 3ML FLUSH IVF SCH ×3 (06:46→22:00)
[2019-04-16] MEDS: CEFTRIAXONE 2 G in DEXTROSE 5% WATER 50 ML IV SCH (08:43)
[2019-04-16] MEDS: FAMOTIDINE 40MG TABLET PO SCH ×2 (08:44→20:56)
[2019-04-16] MEDS: ASPIRIN 81MG TABLET PO SCH (09:35)
[2019-04-16] MEDS: METOPROLOL TARTRATE 50MG TABLET PO SCH ×2 (09:35→20:56)
[2019-04-16 10:49] LABS: PLATELET ESTIMATE NORMAL
[2019-04-16] MEDS: CLONIDINE 0.1MG TABLET PO PRN (11:51)
[2019-04-16] MEDS: HYDROMORPHONE PCA 10MG/50ML IV PRN (15:16)
[2019-04-16] MEDS: ACETAMINOPHEN 325MG TABLET PO PRN (17:20)
[2019-04-17] VITALS (58 sets, daily range): BP systolic 122–168; BP diastolic 49–103
[2019-04-17] MEDS: VANCOMYCIN 1250MG in DEXTROSE 5% WATER 250ML IV SCH ×3 (02:08→17:11)
[2019-04-17] MEDS: DEXT 5%/0.45% NACL 1000ML 1,000 ML IV SCH (02:08)
[2019-04-17] MEDS: ACETAMINOPHEN 325MG TABLET PO PRN (02:20)
[2019-04-17] MEDS: SODIUM CHLORIDE 0.9% INJ 3ML FLUSH IVF SCH ×2 (06:26→13:53)
[2019-04-17] MEDS: FAMOTIDINE 40MG TABLET PO SCH ×2 (08:14→20:07)
[2019-04-17] MEDS: CEFTRIAXONE 2 G in DEXTROSE 5% WATER 50 ML IV SCH (08:14)
[2019-04-17] MEDS: METOPROLOL TARTRATE 50MG TABLET PO SCH ×2 (08:14→20:07)
[2019-04-17] MEDS: ASPIRIN 81MG TABLET PO SCH (08:14)
[2019-04-17] MEDS: AMLODIPINE 5MG TABLET PO SCH (10:27)
[2019-04-17] MEDS: HYDROCODONE/ACETAMINOPHEN 10/325MG TABLET PO PRN (15:17)
[2019-04-17] MEDS: CARISOPRODOL 350 MG TABLET PO PRN (17:11)
[2019-04-17] MEDS: HYDROMORPHONE HCL/PF 2MG/ML CPJ IV PRN (17:11)
[2019-04-17] MEDS: DOCUSATE SODIUM 250MG CAPSULE PO SCH (17:11)
[2019-04-17] MEDS: CLONIDINE 0.1MG TABLET PO PRN (22:00)
[2019-04-18] VITALS (7 sets, daily range): BP systolic 136–164; BP diastolic 70–89
[2019-04-18] MEDS: SODIUM CHLORIDE 0.9% INJ 3ML FLUSH IVF SCH ×4 (00:42→22:20)
[2019-04-18] MEDS: HYDROMORPHONE HCL/PF 2MG/ML CPJ IV PRN ×2 (00:42→05:45)
[2019-04-18] MEDS: VANCOMYCIN 1250MG in DEXTROSE 5% WATER 250ML IV SCH ×3 (02:10→17:14)
[2019-04-18] MEDS: CEFTRIAXONE 2 G in DEXTROSE 5% WATER 50 ML IV SCH (09:07)
[2019-04-18] MEDS: ASPIRIN 81MG TABLET PO SCH (09:08)
[2019-04-18] MEDS: AMLODIPINE 5MG TABLET PO SCH (09:08)
[2019-04-18] MEDS: DOCUSATE SODIUM 250MG CAPSULE PO SCH ×2 (09:08→17:13)
[2019-04-18] MEDS: METOPROLOL TARTRATE 50MG TABLET PO SCH (10:28)
[2019-04-18] MEDS: FAMOTIDINE 40MG TABLET PO SCH (10:28)
[2019-04-18] MEDS: MORPHINE SULFATE 2 MG/ML CPJ (NOT FOR IM USE) IV PRN ×2 (13:49→20:38)
[2019-04-18] MEDS: FAMOTIDINE 20MG TABLET PO SCH (22:22)
[2019-04-19] MEDS: VANCOMYCIN 1250MG in DEXTROSE 5% WATER 250ML IV SCH ×3 (02:29→19:16)
[2019-04-19 04:00] VITALS: BP 160/84
[2019-04-19] MEDS: SODIUM CHLORIDE 0.9% INJ 3ML FLUSH IVF SCH ×3 (06:04→21:25)
[2019-04-19 07:29] LABS: CHLORIDE 96 mEq/L (98-107)
[2019-04-19 08:55] LABS: BASOPHILS % 0.5 % (0.0-2.0); HEMATOCRIT. 35.6 % (42.0-52.0); HEMOGLOBIN. 11.3 g/dL (14.0-18.0); LYMPHOCYTES % 10.1 % (20.0-50.0); MEAN CORPUSCULAR HEMOGLOBIN 22.8 pg (28.0-32.0); MEAN CORPUSCULAR VOLUME 71.8 fL (80.0-94.0); MEAN PLATELET VOLUME 8.6 fl (7.4-10.4); MONOCYTES % 7.9 % (2.0-8.0); NEUTROPHILS % 81.5 % (40.0-76.0); PLATELET 322 x1000/uL (130-400); RED BLOOD CELL COUNT 4.97 mill/uL (4.7-6.1); RED CELL DISTRIBUTION WIDTH 19.7 % (11.6-14.6)
[2019-04-19] MEDS: ASPIRIN 81MG TABLET PO SCH (09:00)
[2019-04-19] MEDS ORDERED: NEBIVOLOL HCL 5 MG TABLET PO SCH (09:00)
[2019-04-19] MEDS: FAMOTIDINE 20MG TABLET PO SCH ×2 (11:04→21:27)
[2019-04-19] MEDS: DOCUSATE SODIUM 250MG CAPSULE PO SCH ×2 (11:04→19:16)
[2019-04-19] MEDS: AMLODIPINE 5MG TABLET PO SCH (11:04)
[2019-04-19] MEDS: CEFTRIAXONE 2 G in DEXTROSE 5% WATER 50 ML IV SCH (11:05)
[2019-04-19 14:12] LABS: BG BASE EXCESS 5.4 mmol/L (-2.0-2.0); BG CARBOXYHEMOGLOBIN 0.9 % (0.5-1.5); BG DEOXYHEMOGLOBIN 4.6 % (0.0-5.0); BG FRACTION INSPIRED OXYGEN 21; BG HCO3 ACT 28.7 mmol/L (22.0-26.0); BG METHEMOGLOBIN 0.3 % (0.0-1.5); BG OXYGEN SATURATION 95.3 % (92.0-98.5); BG OXYHEMOGLOBIN 94.2 % (94.0-97.0); BG PCO2 37.4 mmHg (35.0-45.0); BG PH 7.503 (7.350-7.450); BG PO2 78.8 mmHg (75.0-100.0); BG SAMPLE SITE RIGHT BRACHIAL; BG TOTAL HEMOGLOBIN 12.5 g/dL (12.0-18.0); BG VENT MODE ROOM AIR
[2019-04-19 20:00] VITALS: BP 154/80
[2019-04-19] MEDS: MORPHINE SULFATE 2 MG/ML CPJ (NOT FOR IM USE) IV PRN (20:23)
[2019-04-19] MEDS: NEBIVOLOL HCL 5 MG TABLET PO SCH (21:25)
[2019-04-19] MEDS: HYDROCODONE/ACETAMINOPHEN 10/325MG TABLET PO PRN (21:38)
[2019-04-20] VITALS: BP 124/98
[2019-04-20] MEDS: VANCOMYCIN 1250MG in DEXTROSE 5% WATER 250ML IV SCH ×3 (02:20→17:32)
[2019-04-20] MEDS: MORPHINE SULFATE 2 MG/ML CPJ (NOT FOR IM USE) IV PRN ×2 (02:31→08:22)
[2019-04-20 04:00] VITALS: BP 151/79
[2019-04-20] MEDS: SODIUM CHLORIDE 0.9% INJ 3ML FLUSH IVF SCH ×3 (05:05→21:00)
[2019-04-20 08:00] VITALS: BP 149/71
[2019-04-20] MEDS: FAMOTIDINE 20MG TABLET PO SCH ×2 (08:43→20:58)
[2019-04-20] MEDS: NEBIVOLOL HCL 5 MG TABLET PO SCH ×2 (08:43→20:58)
[2019-04-20] MEDS: AMLODIPINE 5MG TABLET PO SCH (08:43)
[2019-04-20] MEDS: ASPIRIN 81MG TABLET PO SCH (08:43)
[2019-04-20] MEDS: DOCUSATE SODIUM 250MG CAPSULE PO SCH ×2 (08:43→17:32)
[2019-04-20] MEDS: CEFTRIAXONE 2 G in DEXTROSE 5% WATER 50 ML IV SCH (08:45)
[2019-04-20 12:00] VITALS: BP 132/73
[2019-04-20 16:00] VITALS: BP 144/71
[2019-04-20 20:00] VITALS: BP 132/74
[2019-04-21] VITALS: BP 141/77
[2019-04-21] MEDS: VANCOMYCIN 1250MG in DEXTROSE 5% WATER 250ML IV SCH ×2 (01:00→10:58)
[2019-04-21 04:00] VITALS: BP 126/72
[2019-04-21] MEDS: SODIUM CHLORIDE 0.9% INJ 3ML FLUSH IVF SCH ×3 (05:10→21:28)
[2019-04-21] MEDS: HYDROCODONE/ACETAMINOPHEN 10/325MG TABLET PO PRN ×3 (07:24→23:00)
[2019-04-21 08:08] VITALS: BP 162/91
[2019-04-21] MEDS: CEFTRIAXONE 2 G in DEXTROSE 5% WATER 50 ML IV SCH (08:41)
[2019-04-21] MEDS: FAMOTIDINE 20MG TABLET PO SCH ×2 (08:42→21:27)
[2019-04-21] MEDS: ASPIRIN 81MG TABLET PO SCH (08:42)
[2019-04-21] MEDS: DOCUSATE SODIUM 250MG CAPSULE PO SCH ×2 (08:42→17:29)
[2019-04-21] MEDS: AMLODIPINE 5MG TABLET PO SCH (08:42)
[2019-04-21] MEDS: NEBIVOLOL HCL 5 MG TABLET PO SCH ×2 (08:42→21:27)
[2019-04-21 11:39] VITALS: BP 163/87
[2019-04-21 15:32] VITALS: BP 147/79
[2019-04-21 20:00] VITALS: BP 144/82
[2019-04-21] MEDS: VANCOMYCIN 2,000 MG in DEXT 5% WATER 500 ML IV SCH (20:39)
[2019-04-21] MEDS: APIXABAN 5 MG TABLET PO SCH (21:27)
[2019-04-22] VITALS: BP 148/86
[2019-04-22] MEDS: HYDROCODONE/ACETAMINOPHEN 10/325MG TABLET PO PRN (03:01)
[2019-04-22 04:00] VITALS: BP 148/75
[2019-04-22] MEDS: SODIUM CHLORIDE 0.9% INJ 3ML FLUSH IVF SCH ×3 (06:39→21:33)
[2019-04-22 07:57] VITALS: BP 115/70
[2019-04-22] MEDS: FAMOTIDINE 20MG TABLET PO SCH ×2 (09:13→21:32)
[2019-04-22] MEDS: APIXABAN 5 MG TABLET PO SCH (09:13)
[2019-04-22] MEDS: NEBIVOLOL HCL 5 MG TABLET PO SCH ×2 (09:14→21:33)
[2019-04-22] MEDS: AMLODIPINE 5MG TABLET PO SCH (09:14)
[2019-04-22] MEDS: DOCUSATE SODIUM 250MG CAPSULE PO SCH ×2 (09:15→17:32)
[2019-04-22] MEDS: ASPIRIN 81MG TABLET PO SCH (09:15)
[2019-04-22] MEDS: VANCOMYCIN 2,000 MG in DEXT 5% WATER 500 ML IV SCH (09:16)
[2019-04-22] MEDS: CEFTRIAXONE 2 G in DEXTROSE 5% WATER 50 ML IV SCH (09:17)
[2019-04-22] MEDS: MORPHINE SULFATE 2 MG/ML CPJ (NOT FOR IM USE) IV PRN ×2 (10:08→21:32)
[2019-04-22 12:06] VITALS: BP 130/84
[2019-04-22] MEDS: ACETAMINOPHEN 325MG TABLET PO PRN (12:52)
[2019-04-22] MEDS ORDERED: MAGNESIUM HYDROXIDE 400MG/5ML 30ML UDC PO PRN (13:30)
[2019-04-22 15:08] VITALS: BP 136/82
[2019-04-22] MEDS: CARISOPRODOL 350 MG TABLET PO PRN (15:08)
[2019-04-22] MEDS ORDERED: BISACODYL 10MG SUPP PR PRN (19:15)
[2019-04-22 20:00] VITALS: BP 134/78
[2019-04-23] VITALS: BP 137/53
[2019-04-23] MEDS: VANCOMYCIN 2,000 MG in DEXT 5% WATER 500 ML IV SCH ×3 (02:34→20:11)
[2019-04-23 04:00] VITALS: BP 146/63
[2019-04-23 06:25] LABS: BASOPHILS % 0.9 % (0.0-2.0); EOSINOPHILS % 0.5 % (0.0-5.0); HEMATOCRIT. 33.3 % (42.0-52.0); HEMOGLOBIN. 10.7 g/dL (14.0-18.0); LYMPHOCYTES % 16.3 % (20.0-50.0); MEAN CORPUSCULAR VOLUME 71.3 fL (80.0-94.0); MEAN PLATELET VOLUME 7.9 fl (7.4-10.4); MONOCYTES % 10.3 % (2.0-8.0); PLATELET 532 x1000/uL (130-400); RED BLOOD CELL COUNT 4.67 mill/uL (4.7-6.1); RED CELL DISTRIBUTION WIDTH 19.5 % (11.6-14.6)
[2019-04-23 06:29] LABS: CHLORIDE 98 mEq/L (98-107)
[2019-04-23] MEDS: SODIUM CHLORIDE 0.9% INJ 3ML FLUSH IVF SCH ×3 (06:41→20:13)
[2019-04-23 08:00] VITALS: BP 130/75
[2019-04-23] MEDS: FAMOTIDINE 20MG TABLET PO SCH ×2 (08:42→20:12)
[2019-04-23] MEDS: DOCUSATE SODIUM 250MG CAPSULE PO SCH ×2 (08:43→16:56)
[2019-04-23] MEDS: AMLODIPINE 5MG TABLET PO SCH (08:43)
[2019-04-23] MEDS: ASPIRIN 81MG TABLET PO SCH (08:57)
[2019-04-23] MEDS: CEFTRIAXONE 2 G in DEXTROSE 5% WATER 50 ML IV SCH (10:00)
[2019-04-23] MEDS: NEBIVOLOL HCL 5 MG TABLET PO SCH ×2 (10:00→20:13)
[2019-04-23] MEDS: ACETAMINOPHEN 325MG TABLET PO PRN ×2 (10:10→20:13)
[2019-04-23 12:00] VITALS: BP 144/78
[2019-04-23 16:00] VITALS: BP 125/73
[2019-04-23] MEDS: ATORVASTATIN CALCIUM 10MG TABLET PO SCH (20:12)
[2019-04-23 20:35] VITALS: BP 127/74
[2019-04-24 00:13] VITALS: BP 146/77
[2019-04-24 04:00] VITALS: BP 131/72
[2019-04-24] MEDS: SODIUM CHLORIDE 0.9% INJ 3ML FLUSH IVF SCH ×3 (05:09→22:58)
[2019-04-24 07:00] VITALS: BP 127/68
[2019-04-24] MEDS ORDERED: AMLODIPINE 10MG TABLET PO SCH (09:00)
[2019-04-24] MEDS: ASPIRIN 81MG TABLET PO SCH (09:05)
[2019-04-24] MEDS: CEFTRIAXONE 2 G in DEXTROSE 5% WATER 50 ML IV SCH (09:06)
[2019-04-24] MEDS: FAMOTIDINE 20MG TABLET PO SCH ×2 (09:06→20:42)
[2019-04-24] MEDS: NEBIVOLOL HCL 5 MG TABLET PO SCH ×2 (09:06→20:41)
[2019-04-24] MEDS: AMLODIPINE 5MG TABLET PO SCH (09:06)
[2019-04-24] MEDS: DOCUSATE SODIUM 250MG CAPSULE PO SCH ×2 (09:06→16:55)
[2019-04-24] MEDS: VANCOMYCIN 2,000 MG in DEXT 5% WATER 500 ML IV SCH ×2 (09:36→22:09)
[2019-04-24 12:00] VITALS: BP 117/67
[2019-04-24 16:00] VITALS: BP 105/61
[2019-04-24] MEDS ORDERED: ASPIRIN 81MG EC TABLET PO NR (16:00)
[2019-04-24 20:00] VITALS: BP 121/67
[2019-04-24] MEDS: CARISOPRODOL 350 MG TABLET PO PRN (20:41)
[2019-04-24] MEDS: ACETAMINOPHEN 325MG TABLET PO PRN (20:41)
[2019-04-24] MEDS: ATORVASTATIN CALCIUM 10MG TABLET PO SCH (20:42)
[2019-04-24] MEDS ORDERED: HYDROCODONE/APAP 7.5/325MG 1 TAB TABLET PO PRN (22:30)
[2019-04-25] VITALS (7 sets, daily range): BP systolic 112–135; BP diastolic 61–84
[2019-04-25] MEDS: HYDROCODONE/ACETAMINOPHEN 10/325MG TABLET PO PRN ×2 (04:24→14:22)
[2019-04-25] MEDS: SODIUM CHLORIDE 0.9% INJ 3ML FLUSH IVF SCH ×2 (06:00→14:08)
[2019-04-25 08:09] LABS: CHLORIDE 99 mEq/L (98-107)
[2019-04-25] MEDS: FAMOTIDINE 20MG TABLET PO SCH (09:31)
[2019-04-25] MEDS: DOCUSATE SODIUM 250MG CAPSULE PO SCH ×2 (09:31→17:47)
[2019-04-25] MEDS: AMLODIPINE 5MG TABLET PO SCH (09:36)
[2019-04-25] MEDS: ASPIRIN 81MG TABLET PO SCH ×2 (09:37→17:49)
[2019-04-25] MEDS: NEBIVOLOL HCL 5 MG TABLET PO SCH (09:37)
[2019-04-25] MEDS: VANCOMYCIN 2,000 MG in DEXT 5% WATER 500 ML IV SCH (09:40)
[2019-04-25] MEDS: CEFTRIAXONE 2 G in DEXTROSE 5% WATER 50 ML IV SCH (09:52)
[2019-04-25] MEDS: CARISOPRODOL 350 MG TABLET PO PRN (10:00)
[2019-04-25] MEDS ORDERED: LIDOCAINE HCL 1% 20ML VIAL (Pyxis) INJ ONE (10:32)
[2019-04-25] MEDS ORDERED: SODIUM BICARBONATE 4% (2.4MEQ) 5ML VIAL IV ONE (10:32)
[2019-04-25] MEDS ORDERED: ASPIRIN 81MG TABLET PO SCH (18:00)
[2019-04-25] MEDS ORDERED: HYDROCODONE/ACETAMINOPHEN 10/325MG TABLET PO NR (19:15)
[2019-04-25] MEDS ORDERED: VANCOMYCIN 1250MG in DEXTROSE 5% WATER 250ML IV SCH (23:30)
== END 2019-04-25 19:30 | DRG 853 ==
LOC: ER 11:05 → 7WST 13:35 → EDBEDREQTM 13:57 → ENRESERV 15:36 → MICUSO 04-15 09:20 → 6EST 04-17 20:30 → 6WST 04-18 23:24 → 5WST 04-24 07:04
PROVIDERS: ADMIT Internal Medicine; ATTEND Internal Medicine
PROC: 02HV33Z Insertion of Infusion Device into Superior Vena Cava, Percutaneous Approach (ICD-10-PCS; 2019-04-14)
PROC: B548ZZA Ultrasonography of Superior Vena Cava, Guidance (ICD-10-PCS; 2019-04-14)
PROC: 00NY0ZZ Release Lumbar Spinal Cord, Open Approach (ICD-10-PCS; principal; 2019-04-15)
PROC: 0QB10ZZ Excision of Sacrum, Open Approach (ICD-10-PCS; 2019-04-15)
PROC: 0QB00ZZ Excision of Lumbar Vertebra, Open Approach (ICD-10-PCS; 2019-04-15)
PROC: 02HV33Z Insertion of Infusion Device into Superior Vena Cava, Percutaneous Approach (ICD-10-PCS; 2019-04-25)
PROC: B548ZZA Ultrasonography of Superior Vena Cava, Guidance (ICD-10-PCS; 2019-04-25)
PROC: B5181ZA Fluoroscopy of Superior Vena Cava using Low Osmolar Contrast, Guidance (ICD-10-PCS; 2019-04-25)
DX: A41.9 Sepsis, unspecified organism (principal); G06.1 Intraspinal abscess and granuloma; G93.41 Metabolic encephalopathy; I82.431 Acute embolism and thrombosis of right popliteal vein; I82.411 Acute embolism and thrombosis of right femoral vein; G82.20 Paraplegia, unspecified; I50.32 Chronic diastolic (congestive) heart failure; I82.412 Acute embolism and thrombosis of left femoral vein; M48.061 Spinal stenosis, lumbar region without neurogenic claudication; R65.10 Systemic inflammatory response syndrome (SIRS) of non-infectious origin without acute organ dysfunction; M46.46 Discitis, unspecified, lumbar region; E78.5 Hyperlipidemia, unspecified; I10 Essential (primary) hypertension; I25.10 Atherosclerotic heart disease of native coronary artery without angina pectoris; I11.0 Hypertensive heart disease with heart failure; M47.896 Other spondylosis, lumbar region; D64.9 Anemia, unspecified; I73.9 Peripheral vascular disease, unspecified; J44.9 Chronic obstructive pulmonary disease, unspecified; Z86.718 Personal history of other venous thrombosis and embolism; Z79.82 Long term (current) use of aspirin; Z86.73 Personal history of transient ischemic attack (TIA), and cerebral infarction without residual deficits; Z95.5 Presence of coronary angioplasty implant and graft; Z88.1 Allergy status to other antibiotic agents
CPT/HCPCS: 36415; 36573; 36600; 70551; 71045; 72100; 72131; 72141; 72148; 74176; 76000; 76937; 80048; 80053; 80202; 81003; 82140; 82375; 82805; 82962; 83605; 83735; 83880; 84100; 84484; 85025; 85651; 87070; 87075; 88304; 88311; 93005; 93970; 95925; 95926; 95928; 95929; 95940; 97116; 97162; 97166; 97530; 97535; 99285; A9577; C1725; C1893; J0696; J1100; J1170; J2250; J2270; J2405; J2543; J2704; J2710; J3010; J3370; J3490; J7030; J7050; J7060

== ENCOUNTER → 2021-04-08 | Outpatient (CLI) | payer MEDICARE ==
[~2021-04-08] MED LIST changes: -APIX5TAB PO; -ATOR20TA65 PO; +CILO100T MT; -CILO100T PO; -ERGO400T7 PO; -LOSA25TA26 PO; +MECL-159 PO; +METF-414 MT; +METO25TA6 PO; +MV-M1TAB19 PO; -NEBI2.5T2 PO; +PRAV40TA58 PO
== END | disposition home or self-care (01) ==
LOC: RAD 14:03
PROVIDERS: ATTEND Specialist
DX: J98.11 Atelectasis (principal); R05.9 Cough, unspecified
CPT/HCPCS: 71045

== ENCOUNTER 2021-06-27 09:59 | Emergency (ER) | payer MEDICARE ==
[~2021-06-27] VITALS: Ht 181.6 cm; Wt 104.6 kg
[2021-06-27 11:41] LABS: BASOPHILS % 1.2 % (0.0-2.0); EOSINOPHILS % 1.5 % (0.0-5.0); HEMATOCRIT. 35.4 % (42.0-52.0); LYMPHOCYTES % 32.1 % (20.0-50.0); MEAN CORPUSCULAR HEMOGLOBIN 19.6 pg (28.0-32.0); MEAN CORPUSCULAR VOLUME 63.4 fL (80.0-94.0); MEAN PLATELET VOLUME 8.8 fl (7.4-10.4); MONOCYTES % 10.3 % (2.0-8.0); NEUTROPHILS % 54.9 % (40.0-76.0); PLATELET 203 x1000/uL (130-400); RED BLOOD CELL COUNT 5.59 mill/uL (4.7-6.1); RED CELL DISTRIBUTION WIDTH 21.4 % (11.6-14.6)
[2021-06-27 11:47] LABS: CHLORIDE 106 mEq/L (98-107)
[2021-06-27 12:27] LABS: PLATELET ESTIMATE NORMAL
[2021-06-27] MEDS ORDERED: XAR15 MT (12:55)
[2021-06-27 13:08] VITALS: BP 162/90
== END 2021-06-27 13:19 | disposition home or self-care (01) ==
LOC: ER 09:59
DX: I82.5Y1 Chronic embolism and thrombosis of unspecified deep veins of right proximal lower extremity (principal); I82.591 Chronic embolism and thrombosis of other specified deep vein of right lower extremity; I10 Essential (primary) hypertension; D64.9 Anemia, unspecified; E11.9 Type 2 diabetes mellitus without complications; I25.10 Atherosclerotic heart disease of native coronary artery without angina pectoris; I25.2 Old myocardial infarction; Z79.01 Long term (current) use of anticoagulants; Z95.5 Presence of coronary angioplasty implant and graft
CPT/HCPCS: 36415; 71045; 80053; 80305; 83880; 84484; 85025; 93005; 93970; 99285